=== PATIENT | female | born 1935 | race Caucasian/White ===

== ENCOUNTER 2020-07-08 18:05 | Outpatient (CLI) | payer MEDICARE ==
--- NOTE | 2020-07-08 20:46 | RAD ---
CHEST TWO VIEWS: 07/08/20 AP, upright and lateral views were obtained. Comparison is made with a 03/10/19 portable film. The heart is normal in size. There is no vascular congestion or edema. No pleural effusions are seen. There is a little bit of streaking around the right hilum and over the right lung base. Some of this was present to some extent previously, though it is perhaps a little more prominent today than before . Additionally, the left costophrenic angle is a little hazier today than previously. All of these fi ndings are rather soft and indeterminate for acute infiltrate versus chronic findings. The upper lobe s are clear. IMPRESSION: Equivocal prominence of markings near the right hilum and near the left costophrenic angle. These co uld just as easily be atelectasis and scarring as anything. If the patient had signs and symptoms of infection, then perhaps at least a follow-up film in a few days might be considered, depending upon t he evolution of symptoms. Code T POS: HOME
== END 2020-07-08 18:06 | disposition home or self-care (01) ==
LOC: BURRAD 18:05
PROVIDERS: ATTEND Family Medicine
DX: R09.89 Other specified symptoms and signs involving the circulatory and respiratory systems (principal); R91.8 Other nonspecific abnormal finding of lung field
CPT/HCPCS: 71046

== ENCOUNTER 2020-07-08 19:27 | Outpatient (CLI) | payer MEDICARE ==
[2020-07-08 19:34] LABS: #Basophils 0.1 thou/uL (0.0-0.2); #Eosinphils 0.3 thou/uL (0.0-0.7); #Lymphocytes 3.2 thou/uL (1.20-3.40); #Neutrophils 6.6 thou/uL (1.40-6.50); %Basophils 1.3 % (0.0-1.0); %Eosinophils 2.6 % (0.0-10.0); %Lymphocytes 28.7 % (21.0-51.0); %Monocytes 8.5 % (0.0-10.0); %Neutrophils 58.8 % (42.0-75.0); Hemoglobin 15.3 g/dL (12.0-16.0); Mean Corpuscular HGB CONC 31.1 g/dL (32.0-36.0); Mean Corpuscular Hemoglobin 31.7 pg (27.0-31.0); Mean Platelet Volume 8.7 fL (7.4-10.4); Platelet Count 211 thou/uL (130-400); RBC Distribution Width 13.5 % (11.5-14.5); Red Blood Cell (RBC) Count 4.81 mill/uL (4.20-5.40); White Blood Cell (WBC) Count 11.2 thou/uL (4.8-10.8)
[2020-07-08 19:46] LABS: ALT (SGPT) 27 U/L (8-55); AST (SGOT) 24 U/L (5-34); Albumin 3.9 g/dL (3.4-4.8); Alkaline Phosphatase 78 U/L (40-110); Anion Gap 19 mmol/L (10-20); BUN (Urea Nitrogen) 46 mg/dL (9.8-20.1); Bilirubin, Total 0.5 mg/dL (0.2-1.2); Calc. Creatinine Clearance 0 mL/min (70-130); Calcium 8.8 mg/dL (7.8-10.44); Carbon Dioxide 20 mmol/L (23-31); Chloride 122 mmol/L (98-107); Estimated GFR-MDRD 43; Globulin 3.1 g/dL (2.4-3.5); Glucose 110 mg/dL (83-110); Potassium 4.5 mmol/L (3.5-5.1); Sodium 156 mmol/L (136-145)
== END 2020-07-08 19:28 | disposition home or self-care (01) ==
LOC: BURMANOR 19:27
PROVIDERS: ATTEND Registered Nurse Community Health
DX: R09.89 Other specified symptoms and signs involving the circulatory and respiratory systems (principal); R91.8 Other nonspecific abnormal finding of lung field
CPT/HCPCS: 71046; 80053; 85025; 87804

== ENCOUNTER 2020-07-10 09:28 | Outpatient (CLI) | payer MEDICARE ==
[2020-07-10 09:56] LABS: #Basophils 0.1 thou/uL (0.0-0.2); #Eosinphils 0.3 thou/uL (0.0-0.7); #Lymphocytes 2.4 thou/uL (1.20-3.40); #Monocytes 0.6 thou/uL (0.11-0.59); #Neutrophils 6.9 thou/uL (1.40-6.50); %Basophils 0.7 % (0.0-1.0); %Eosinophils 3.1 % (0.0-10.0); %Lymphocytes 23.4 % (21.0-51.0); %Neutrophils 66.8 % (42.0-75.0); Hemoglobin 13.4 g/dL (12.0-16.0); Mean Corpuscular HGB CONC 33.2 g/dL (32.0-36.0); Mean Corpuscular Hemoglobin 32.9 pg (27.0-31.0); Mean Corpuscular Volume 99.2 fL (78.0-98.0); Mean Platelet Volume 13.7 fL (7.4-10.4); Platelet Count 229 thou/uL (130-400); RBC Distribution Width 16.9 % (11.5-14.5); Red Blood Cell (RBC) Count 4.08 mill/uL (4.20-5.40); White Blood Cell (WBC) Count 10.3 thou/uL (4.8-10.8)
[2020-07-10 10:05] LABS: MDiff Complete? YES; Manual Diff?? NO
[2020-07-10 10:11] LABS: ALT (SGPT) 21 U/L (8-55); AST (SGOT) 40 U/L (5-34); Albumin 3.8 g/dL (3.4-4.8); Alkaline Phosphatase 83 U/L (40-110); Anion Gap 20 mmol/L (10-20); BUN (Urea Nitrogen) 32 mg/dL (9.8-20.1); Bilirubin, Total 0.8 mg/dL (0.2-1.2); Calc. Creatinine Clearance 0 mL/min (70-130); Calcium 8.7 mg/dL (7.8-10.44); Carbon Dioxide 17 mmol/L (23-31); Chloride 125 mmol/L (98-107); Globulin 3.2 g/dL (2.4-3.5); Glucose 94 mg/dL (83-110); Potassium 5.3 mmol/L (3.5-5.1); Sodium 157 mmol/L (136-145)
== END 2020-07-10 09:29 | disposition home or self-care (01) ==
LOC: BURERS 09:28 → BURMANOR 09:29
PROVIDERS: ATTEND Registered Nurse Community Health
DX: N39.0 Urinary tract infection, site not specified (principal); E86.0 Dehydration
CPT/HCPCS: 80053; 85025

== ENCOUNTER 2020-07-14 07:13 | Outpatient (CLI) | payer MEDICARE ==
[2020-07-14 07:35] LABS: ALT (SGPT) 15 U/L (8-55); AST (SGOT) 22 U/L (5-34); Albumin 3.5 g/dL (3.4-4.8); Alkaline Phosphatase 70 U/L (40-110); Anion Gap 17 mmol/L (10-20); BUN (Urea Nitrogen) 24 mg/dL (9.8-20.1); Bilirubin, Total 0.4 mg/dL (0.2-1.2); Calc. Creatinine Clearance 0 mL/min (70-130); Calcium 8.2 mg/dL (7.8-10.44); Carbon Dioxide 20 mmol/L (23-31); Chloride 116 mmol/L (98-107); Estimated GFR-MDRD 64; Glucose 86 mg/dL (83-110); Protein, Total 5.5 g/dL (6.0-8.3); Sodium 149 mmol/L (136-145)
== END 2020-07-14 07:14 | disposition home or self-care (01) ==
LOC: BURMANOR 07:13
PROVIDERS: ATTEND Registered Nurse Community Health
DX: E86.0 Dehydration (principal); E11.8 Type 2 diabetes mellitus with unspecified complications
CPT/HCPCS: 36415; 80053